=== PATIENT | male | born 1935 | race Asian ===

== ENCOUNTER → 2016-08-29 | Outpatient (CLI) | payer MEDICAID, MEDICARE, OTHER ==
[~2016-08-29] MED LIST: OMNIPAQUE 350 MG/ML, 150 ML BOTTLE ONE
== END | disposition home or self-care (01) ==
LOC: CFH 09:03
PROVIDERS: ATTEND Physician Assistant Surgical
DX: R31.0 Gross hematuria (principal); N28.1 Cyst of kidney, acquired; K80.20 Calculus of gallbladder without cholecystitis without obstruction; Z90.79 Acquired absence of other genital organ(s)
CPT/HCPCS: 74178; Q9967